=== PATIENT | female | born 1960 | race African-American/Black ===

== ENCOUNTER 2021-12-08 14:50 | Emergency (ER) | payer OTHER ==
[~2021-12-08] VITALS: Ht 160 cm; Wt 71.7 kg
[2021-12-08] MEDS ORDERED: PREDNISONE20 M1 PO (15:11)
[2021-12-08] MEDS ORDERED: CLONIDINE HCL0.1 MG PO (15:12)
[2021-12-08] MEDS ORDERED: VITAMIN D21250 MCG PO (15:12)
[2021-12-08] MEDS ORDERED: ALPRAZOLAM0.5 MG PO (15:12)
[2021-12-08] MEDS ORDERED: RAYOS5 MG (15:12)
== END 2021-12-08 18:56 | disposition home or self-care (01) ==
LOC: ER 14:50
DX: J45.998 Other asthma (principal); Z88.8 Allergy status to other drugs, medicaments and biological substances; Z91.040 Latex allergy status